=== PATIENT | female | born 1940 | race Hispanic/Latino ===

== ENCOUNTER 2017-01-01 18:33 | Emergency (ER) | payer MEDICARE, MEDICAID ==
[~2017-01-01] VITALS: Ht 157.5 cm; Wt 76.8 kg
[~2017-01-01 18:33] MED LIST: BACL10TA PO; CLOP75TA3 PO; FLUT16SP2 NS; GUAI600T2 PO; GUAI600T86 PO; LEVO750T9 PO; LEVO75TA4 PO; METF10002 PO; OMEP40CA3 PO; PEG15DRO2 OP; SIMV40TA5 PO; VALS1TAB72 PO
[2017-01-01 18:39] VITALS: BP 143/78; PULSE 63; RESP 22; O2SAT 99
[2017-01-01 18:56] LABS: BASOPHILS % (AUTO) 0.2 % (0-3); EOSINOPHILS % (AUTO) 2.6 % (0-5); MONOCYTES % (AUTO) 10.7 % (4-12); Mean Corpuscular Hemoglobin 29.2 pg (27.0-35.0); Mean Corpuscular Volume 86.7 fL (81-100); NEUTROPHILS % (AUTO) 58.6 % (40-74); Platelet Count 330 bil/L (150-400)
--- NOTE | 2017-01-01 19:23 | ED.REPORT ---
HPI-Chest Pain 40 and Over Date of Service Jan 01, 2017 ED Provider: Dr. Dias Pt is a 76 year old female with a hx of DM, HTN, hypothyroidism, hyperlipidemia , CAD presenting to the ED complaining of weakness worsened today. Associated symptoms include feeling dry, chest heaviness, dizziness, a white sputum producing cough, lightheadedness, and SOB which have all been ongoing for the past week. She states that she was seen here 10 days ago for the cough and was put on oral antibiotics which helped somewhat but now notes she does not feel like she is getting better. Denies any fever, chills, or wheezing. Nursing Notes Stated Complaint: CHEST PAIN Chief Complaint: Chest Pain Nursing Notes Reviewed: Yes Allergies: Coded Allergies: carbamazepine (Verified Allergy, Unknown, ANXIETY, "DRY EYES", 01/01/17) Scheduled Clopidogrel Bisulfate (Plavix) 75 Mg Tablet 75 MG PO Q2DAY Guaifenesin (Guaifenesin ER) 600 Mg Tab.er.12h 1,200 MG PO Q12 Guaifenesin (Mucinex) 600 Mg Tablet.er 600 MG PO BID Levofloxacin (Levaquin) 750 Mg Tablet 750 MG PO DAILY Levofloxacin (Levaquin) 750 Mg Tablet 750 MG PO DAILY Levothyroxine (Levothyroxine) 75 Mcg Tablet 75 MCG PO DAILY Metformin (Metformin) 1,000 Mg Tablet 500 MG PO BIDWM Omeprazole (Prilosec) 40 Mg Capsule.dr 40 MG PO DAILY Simvastatin (Simvastatin) 40 Mg Tablet 20 MG PO HS Valsartan/HCTZ 80-12.5 mg (Valsartan/HCTZ 80-12.5 mg) 1 Each Tablet 0.5 TABLET PO DAILY Scheduled PRN Baclofen (Baclofen) 10 Mg Tablet 10 MG PO TID PRN PRN For Pain Fluticasone Propionate (Flonase Nasal) 16 Gm [place].susp 2 SPRAY NS DAILY PRN PRN nasal congestion Peg 400/Hypromellose/Glycerin (Visine Tears Drops) 15 Ml Drops 15 ML OP 5XD PRN PRN dry eyes General Time Seen by MD: 19:23 Chief Complaint Chest pain Hx Obtained From: Patient Arrived By: Walk-in Sudden in Onset?: No Onset Occurred: 1 week ago Symptom Duration: Since onset Quality: Heaviness, Painful Severity: Current: Mild Severity: Maximum: Moderate Recent Healthcare: No recent hospitalization, Recent doctor visit Similar Sx Previous: No Past Medical History Past Medical History Diabetes mellitus type II, hypothyroidism, CAD with stent placement 2004, hypertension, hypercholesterolemia, and cruz's palsy. Past Surgical History Stent placement 2004, Tonsilectomy 1948. Smoking History Never Smoker Social History Drug Use: Denies drug use Ambulatory Status Independent Review of Systems Constitutional: Denies: Chills, Fever Respiratory: Reports: Prod cough, white, Shortness of breath, Denies: Wheezing Cardiovascular: Reports: Chest pain Neurologic: Reports: Dizziness, Lightheaded, Weakness Complete sys rev & neg: except as marked. Physical Exam Initial Vital Signs Vital Signs (First) Date Time Temp Pulse Resp B/P Pulse Ox O2 Delivery O2 Flow Rate FiO2 01/01/17 18:39 36.7 63 22 143/78 99 Room Air Initial VS: Reviewed Head / Eyes: Atraumatic, Normocephalic, PERRL ENT: Mucous membranes moist, Conjunctiva normal, No scleral icterus Neck: Supple, Non-tender, Full range of motion Extremities: Vascular intact, Neuro intact, No swelling, No tenderness Skin: Warm, Dry, No cyanosis Neurologic: Alert, Oriented, Nonfocal Psychiatric: Mood/affect normal, Behavior normal, Normal thought content General/Constitutional: Awake, Alert Respiratory / Chest: Atraumatic, No respiratory distress Bibasilar rales Cardiovascular: Heart rate NL, Regular rhythm, Heart sounds NL, No murmurs Abdomen: Atraumatic, Soft, Non-tender Interpretation & Diagnostics Lab Results Interpretation Result Diagram: 01/01/17 1825 01/01/17 1825 Test 01/01/17 18:25 01/01/17 18:45 01/01/17 22:43 White Blood Count 8.5th/mm3 (3.8-10.1) Red Blood Count 5.04mil/mm3 (3.90-5.20) Hemoglobin 14.7g/dL (12.0-15.6) Hematocrit 43.7% (35.0-46.0) Mean Corpuscular Volume 86.7fL (81-100) Mean Corpuscular Hemoglobin 29.2pg (27.0-35.0) Mean Corpuscular Hemoglobin Concent 33.6% (32.0-37.0) Red Cell Distribution Width 14.5% (12.3-15.4) Platelet Count 330bil/L (150-400) Neutrophils (%) (Auto) 58.6% (40-74) Lymphocytes (%) (Auto) 26.7% (14-46) Monocytes (%) (Auto) 10.7% (4-12) Eosinophils (%) (Auto) 2.6% (0-5) Basophils (%) (Auto) 0.2% (0-3) Sodium Level 135mEq/L (134-144) Potassium Level 4.3mEq/L (3.5-5.2) Chloride Level 96mEq/L (97-108) Carbon Dioxide Level 23mmol/L (18-29) Blood Urea Nitrogen 17mg/dL (8-27) Creatinine 0.88mg/dL (0.57-1.00) Estimat Glomerular Filtration Rate 89mL/min (>59) Glucose Level 118mg/dL (60-99) Calcium Level 9.8mg/dL (8.5-10.1) Magnesium Level 1.9mg/dL (1.6-2.6) Total Bilirubin 0.3mg/dL (0.0-1.2) Aspartate Amino Transf (AST/SGOT) 33U/L (0-50) Alanine Aminotransferase (ALT/SGPT) 24U/L (0-32) Alkaline Phosphatase 72U/L (25-165) Troponin T < 0.010ug/L (0.0-0.011) Total Protein 8.1g/dL (6.4-8.4) Albumin 4.6g/dL (3.4-5.0) D-Dimer < 0.50mg/L FEU (<0.50) Urine Color Yellow (YELLOW) Urine Appearance Clear (CLEAR,HAZY) Urine pH 6.0 (5.0-8.0) Urine Specific [place] 1.005 (1.003-1.035) Urine Protein Negativemg/dL (NEG,TRACE) Urine Glucose (UA) Negativemg/dL (NEGATIVE) Urine Ketones Negativemg/dL (NEGATIVE) Urine Occult Blood Trace (NEGATIVE) Urine Nitrite Negative (NEGATIVE) Urine Bilirubin Negative (NEGATIVE) Urine Urobilinogen Normalmg/dL (NORMAL) Urine Leukocyte Esterase Negative (NEGATIVE) Urine RBC 0-2/hpf (0-2) Urine WBC 0-5/hpf (0-5) Urine Epithelial Cells Occasional/hpf (NONE-MOD) Urine Crystals None seen (NONE SEEN) Urine Bacteria None/hpf (NONE-FEW) Urine Hyaline Casts None/lpf (NONE) Urine Granular Casts None seen (NONE SEEN) Urine Waxy Casts None seen (NONE SEEN) Urine Red Blood Cell Casts None seen (NONE SEEN) Urine White Blood Cell Casts None seen (NONE SEEN) Urine Mucus None seen (None Seen) Urine Trichomonas None seen (NONE SEEN) Urine Yeast None (NONE SEEN) Urinalysis Comment None Urine Culture Reflexed Not indicated ECG Interpretation ECG Interpretation: T wave inversion in lead 3 which is unchanged when compared to 11/03/15. Time: 19:29 Interpreted by: ED physician Normal ECG Interpretation: Normal rate (60), Normal sinus rhythm X-Ray Chest Interpretation Chest Xray Interpretation: IMPRESSION: 1. No acute cardiopulmonary disease. Findings of bibasilar chronic interstitial lung disease as before, better characterized on comparison high resolution chest CT. 2. 1.9 cm right subcoracoid intra-articular body again noted. Dictated by: Rasta Andre M.D. on 01/01/2017 at 20:10 View: AP & lat Interpretation / Wet Read by: Interpret - Radiologist Re-Eval/Medical Decision Med Decision/Clinical Course reports were reviewed by myself showing that she was seen at on 12/23 for the same and was treated with ZPak and hydrocodone. Her last echo was 07/2012 and had an EF of 60-65%, grade 1 diastolic disfunction. No valvular abnormality. She was seen by cardio in June 2015 and is due to follow up in 1 year. EKG showed non specific T wave, unchanged since 2012. CT done in Jun 2016 shows UIP and pt notes she was not seen in f/u after this by her assistant facility manager, Dr. Ricketts. With no hypoxia on RA and normal RR/labs/xrays including neg D dimer, I believe here symptoms are all related to her chronic lung disease demonstrated on Jun 2016 CT. I advised she f/u with Dr. Ricketts. Sx improved with albuterol here so she was sent home with albuterol inhaler for symptomatic releif. No further abx or steroids needed. Pt was not wheezing and in no respiratory distress. ACS ruled out here but pt may benefit from stress test as well to r/o cardiac source of sx in f/u with PCP. Time of Eval: 21:38 Patient Status: Condition improved Re-Evaluation/Progress Note: Performed physical exam. Discussed x ray and lab results. Discussed plan for urinalysis. Time of Eval: 23:35 Patient Status: Condition improved Re-Evaluation/Progress Note: Discussed plan for discharge. Pt understands and agrees. Counseled Regarding: Diagnosis, Lab results, Need for follow-up, When/why to return to ED Discharge & Departure Primary Impression: Shortness of breath Ruled Out: Acute coronary syndrome, Pulmonary embolus, UTI (urinary tract infection) Disposition: Home Discharge Condition All VS Reviewed: Yes Condition: Improved Patient Instructions: Shortness of Breath (ED) Additional Instructions: Thank you for trusting us with your care today. No dangerous cause for your symptoms was identified today. Your chest x ray and labs were reassuring. They did not show any sign of a blood clot or pneumonia in your lungs. Your heart workup was also normal. Your oxygen levels and your blood were normal. Your symptoms improved with albuterol and your discharged home with an inhaler. The lung symptoms you are experiencing could be related to a diagnosis of UIP which was seen on your chest CT in June. Please follow-up with your assistant facility manager , Dr. Ricketts in [place]. Also follow up with your primary care doctor in the next week for a recheck/reevaluation. Return to the ER if you develop any new or worsening symptoms. Use the inhaler at home as needed for your shortness of breath. Referrals: Zachariah Hernandez MD (PCP) Scribe Attestation Portions of this note were transcribed by Carla Hewitt. I, Dr. Dias personally performed the history, physical exam and medical decision-making; I reviewed and confirmed the accuracy of the information in the transcribed note. Signed by: Jake Guadarrama, 01/01/2017. copies to: Zachariah Hernandez MD, Gary R DO Jan 01, 2017 19:23 CARLA HEWITT Jan 01, 2017 19:40
[2017-01-01 19:31] LABS: Magnesium 1.9 mg/dL (1.6-2.6)
[2017-01-01 19:32] LABS: TROPONIN T < 0.010 ug/L (0.0-0.011)
--- NOTE | 2017-01-01 20:14 | DRSVH ---
PROCEDURE: X-RAY CHEST, TWO VIEWS ([id number]) INDICATIONS: 76 year-old female with chest pain and shortness of breath. TECHNIQUE: 2 views of the chest were acquired. COMPARISON: [facility], CT, CT CHEST HIGH RESOLUTION, 06/09/2016, 8:56. [facility], CR, XR CHEST 2VW, 12/23/2016, 10:11. [facility], CR, XR CHEST 2VW, 07/23/2016, 1 8:58. [facility], CR, XR CHEST 2VW, 05/22/2016, 12:19. FINDINGS: Surgical changes and devices: None. Lungs and pleura: No pleural effusions or pneumothorax. No acute airspace opacities. Bibasilar inte rstitial opacities are again noted. There is aortic atherosclerosis. Mediastinum: Mediastinal contours are normal. Heart size is normal. Bones and chest wall: No suspicious bony abnormalities. 1.9 cm right subcoracoid intra-articular bod y is again noted. IMPRESSION: 1. No acute cardiopulmonary disease. Findings of bibasilar chronic interstitial lung disease as befor e, better characterized on comparison high resolution chest CT. 2. 1.9 cm right subcoracoid intra-articular body again noted. Dictated by: Rasta Andre M.D. on 01/01/2017 at 20:10 Approved by: Rasta Andre M.D. on 01/01/2017 at 20:13
[2017-01-01 20:39] VITALS: BP 140/68; PULSE 67; RESP 20; O2SAT 97
[2017-01-01] MEDS ORDERED: Albuterol-Ipratropium 3 mL Inhalation Solution NEB ONE (21:45)
[2017-01-01 22:25] VITALS: PULSE 57; RESP 12; O2SAT 97
[2017-01-01 22:50] LABS: APPEARANCE,URINE CLEAR (CLEAR,HAZY); COLOR,URINE YELLOW (YELLOW); OCCULT BLOOD,URINE TRACE (NEGATIVE); UROBILINOGEN,URINE NORMAL (NORMAL)
[2017-01-01 22:52] VITALS: BP 143/55; PULSE 77; RESP 20; O2SAT 98
[2017-01-01] MEDS ORDERED: Albuterol HFA 200 Puff Inhaler (Vent Pts Only) INHALATION PRN (23:45)
[2017-01-01] MEDS ORDERED: Albuterol HFA 60 Puff 8 Gm Inhaler INHALATION ONE (23:45)
[2017-01-01] MEDS ORDERED: Albuterol HFA 200 Puff Inhaler (Vent Pts Only) INHALATION SCH (23:45)
[2017-01-01] MEDS ORDERED: Albuterol HFA 200 Puff Inhaler (Vent Pts Only) INHALATION ONE (23:46)
[2017-01-02 00:05] VITALS: BP 124/53; PULSE 67; RESP 16; O2SAT 94
== END 2017-01-02 00:18 | disposition home or self-care (01) ==
LOC: SED 18:33
DX: R06.02 Shortness of breath (principal); I10 Essential (primary) hypertension; E11.9 Type 2 diabetes mellitus without complications; I25.10 Atherosclerotic heart disease of native coronary artery without angina pectoris; E03.9 Hypothyroidism, unspecified; Z79.84 Long term (current) use of oral hypoglycemic drugs; Z79.899 Other long term (current) drug therapy; Z88.8 Allergy status to other drugs, medicaments and biological substances
CPT/HCPCS: 36415; 71020; 80053; 81000; 83735; 84484; 85025; 85378; 93005; 94640; 99285; J7620